=== PATIENT | female | born 1955 | race Caucasian/White ===

== ENCOUNTER 2018-01-06 11:54 | Observation (INO) ==
[2018-01-06] MEDS ORDERED: Aspirin 81 MG TAB.CHEW PO ONE (12:11)
[2018-01-06] MEDS ORDERED: Nitroglycerin 0.4 MG TAB.SUBL SL ONE (12:11)
--- NOTE | 2018-01-06 12:12 | Emergency Department Note ---
Disposition Clinical Impression: Elevated troponin I level Chest pain Qualifiers: Chest pain type: unspecified Qualified Code(s): R07.9 - Chest pain, unspecified Disposition: Admitted As Inpatient Condition: Fair Time of Disposition: 14:13 Chest Pain HPI - General Chief Complaint: ED Chest Pain Stated Complaint: chest pain Time Seen by Provider: 01/06/18 11:58 Source: patient Limitations: no limitations - History of Present Illness HPI Narrative: 62yo female c/o of sternal chest pain that radiates to her left shoulder. Patient states it started gradually 2 hours ago while folding laundry then "the pain hit her hard all the sudden." Patient has chest pain in ED when examined, says chest pain is dull, 7/10, but pain is sharp when she takes a deep breath. Pain exacerbated with breathing and moving; relief when she is not moving. Patient admits to diaphoresis when chest pain worsened. Patient denies taking aspirin or any medication for the chest pain. Patient denies ripping/tearing sensation, was a smoker for 15 years and quit 30 years ago. Patient has hx of HTN and is well controlled with medication, she states she took her BP medication this morning, but her home BP was a little elevated today still. Patient denies personal hx of RI or angina. Patient has risk factors: HTN, famhx of CAD. Pt complaint: chest pain Onset (ago): hour(s) Duration: constant, gradually worsening Severity scale (1-10): 7 Quality: sharp, dull Pain Radiation: other (left shoulder blade) Improves with: remaining still Worsens with: inspiration, movement Associated symptoms: Reports: diaphoresis, dyspnea Treatments prior to arrival chest pain: none - Related Data Home Medications Medication Instructions Recorded Confirmed Lisinopril [Zestril] 5 mg PO DAILY 01/06/18 01/06/18 Omeprazole [PriLOSEC] 20 mg PO DAILY 01/06/18 01/06/18 Allergies Allergy/AdvReac Type Severity Reaction Status Date / Time No Known Allergies Allergy Verified 01/06/18 11:55 Constitutional: Denies: fever, chills, weakness, weight change Eyes: Denies: eye pain, eye discharge, vision change ENT ED: Denies: ear pain, throat pain, dental pain, hearing loss, epistaxis, congestion, dysphagia Cardiovascular: Reports: as per HPI, chest pain Respiratory: Reports: as per HPI, dyspnea (sharp pain with dep insipration) Chest Pain PMH - Past Medical History Medical history: Reports: GERD, hyperlipidemia, hypertension Surgical history: Reports: hysterectomy Psychiatric history: Reports: anxiety, depression PUBLIC HEALTH STAFF NURSE history: Reports: no PUBLIC HEALTH STAFF NURSE history - Social History Smoking Status: Former smoker (quit 30 years ago, smoked for 15 years) Alcohol use: Reports: unknown Drug use: Reports: none Physical Exam - General Limitations: no limitations General appearance: alert, in no apparent distress - Head Head exam: atraumatic, normocephalic, normal inspection - Eye Eye exam: Present: EOMI - ENT ENT exam: normal exam - Neck Neck exam: Present: normal inspection - Chest Chest inspection: Present: normal inspection, symmetric chest wall rise - Respiratory Respiratory exam: Present: normal lung sounds bilaterally - Cardiovascular Cardiovascular exam: Present: regular rate, normal rhythm, normal heart sounds - Abdominal Exam Abdominal exam: Present: soft, Non-Tender. Absent: tenderness, distention, guarding, rebound, rigidity - Extremities Exam Extremities exam: Present: normal inspection, full ROM. Absent: tenderness, pedal edema - Neurological Exam Neurological exam: Present: alert, oriented X3 - Psychiatric Psychiatric exam: Present: normal affect, normal mood - Skin Skin exam: Present: warm, dry, intact, normal color Course Course Narrative: Patient seen and examined. Chest pain that started 2 hours ago. Cardiopulmonary workup initiated. EKG does not show any signs of ST elevation. - Reevaluation(s) Reevaluation #1: Troponin mildly elevated at 0.05. We will admit for chest pain, ACS workup. I discussed with the hospitalist Dr. Baig who has accepted patient for admission. Time: 14:04 Vital Signs Temperature 98.1 F 01/06/18 11:55 Pulse Rate 89 01/06/18 11:55 Respiratory Rate 15 01/06/18 11:55 Blood Pressure 174/85 01/06/18 11:55 O2 Sat by Pulse Oximetry 93 01/06/18 11:55 Temperature 98.1 F 01/06/18 12:00 Pulse Rate 74 01/06/18 13:03 Respiratory Rate 15 01/06/18 12:00 Blood Pressure 127/76 01/06/18 13:03 O2 Sat by Pulse Oximetry 95 01/06/18 13:03 Oxygen Delivery Oxygen Delivery Room Air Chest Pain - Medical Records Medical records reviewed: Yes I reviewed the patient's medical records. - Lab Data Lab results reviewed: Yes I reviewed the patient's lab results. Result diagrams: 01/06/18 12:21 01/06/18 12:21 Lab Results 01/06/18 01/06/18 01/06/18 Range/Units 12:21 12:21 12:21 WBC 6.4 (4.3-11.1) K/mcL RBC 4.75 (3.82-4.97) M/mcL Hgb 14.0 (11.5-15.4) g/dL Hct 42.1 (35.3-44.9) % MCV 88.6 (83.0-100.0) fL MCH 29.5 (28.0-33.3) pg MCHC 33.3 (31.6-35.5) g/dL RDW 12.6 (11.5-14.5) % Plt Count 190 (140-400) K/mcL MPV 10.2 (9.4-12.4) fL Immature Gran % 0.5 (0-4) % Seg Neutrophils % 46.9 % Lymphocytes % 40.4 % Monocytes % 9.7 % Eosinophils % 1.7 % Basophils % 0.8 % Neutrophils # 3.0 (1.6-8.9) K/mcL Lymphocytes # 2.6 (0.6-4.6) K/mcL Monocytes # 0.6 (0.0-1.3) K/mcL Eosinophils # 0.1 (0.0-0.6) K/mcL Basophils # 0.1 (0.0-0.2) K/mcL D-Dimer 442 (0-500) ng/mLFEU Sodium 141 (136-145) mEq/L Potassium 3.3 L (3.5-5.1) mEq/L Chloride 112 H (98-107) mEq/L Carbon Dioxide 24 (23-29) mEq/L BUN 9 (8-23) mg/dL Creatinine 0.49 L (0.60-1.20) mg/dL Est GFR ( Amer) > 60 (> 60) Est GFR (Non-Af Amer) > 60 (> 60) BUN/Creatinine Ratio 18 (6-26) Glucose 88 (70-105) mg/dL Calculated Osmolality 290 (280-300) Calcium 7.7 L (8.6-10.3) mg/dL Troponin I 0.05 H* (< 0.04) ng/mL - Radiology Data Radiology results reviewed: Yes I reviewed the patient's radiology results. Chest X-Ray 01/06/18 12:11 IMPRESSION: No acute findings D/ / Soumya Orellana MD / Soumya Orellana MD Interpreting Provider: Soumya Orellana MD - EKG Data EKG attestation: Yes I reviewed and interpreted this EKG. EKG results narrative: EKG done at 1206 shows normal sinus rhythm with a rate of [address] elevation or depression. Left axis deviation. Heart Score - Score History: Slightly Suspicious EKG: Non Specific repolarisation Disturbance Age: 45-65 Risk Factors: 1-2 risk factors Troponin: Less than normal limit HEART Score Total: 3
--- NOTE | 2018-01-06 12:23 | Emergency Department Note ---
Disposition Clinical Impression: Chest pain, Elevated troponin I level Disposition: Admitted As Inpatient Condition: Fair General Adult HPI - General Chief complaint: ED Chest Pain Stated complaint: chest pain Time Seen by Provider: 01/06/18 11:58 Source: patient Limitations: no limitations Nursing Notes Reviewed: Yes Vital Signs Reviewed: Yes - History of Present Illness Pain Scale: 7 - Related Data Home Medications Medication Instructions Recorded Confirmed Lisinopril [Zestril] 5 mg PO DAILY 01/06/18 01/06/18 Omeprazole [PriLOSEC] 20 mg PO DAILY 01/06/18 01/06/18 Allergies Allergy/AdvReac Type Severity Reaction Status Date / Time No Known Allergies Allergy Verified 01/06/18 11:55 Past Medical History - Past Medical History Medical history: Reports: GERD, hyperlipidemia, hypertension Surgical history: Reports: hysterectomy Psychiatric history: Reports: anxiety, depression MOVIE PROJECTIONIST history: Reports: no MOVIE PROJECTIONIST history - Social History Smoking Status: Unknown if ever smoked Smokeless Tobacco Status: No Alcohol use: Reports: unknown Drug use: Reports: none Physical Exam - General Limitations: no limitations General appearance: alert, in no apparent distress Course Vital Signs Temperature 98.1 F 01/06/18 11:55 Pulse Rate 89 01/06/18 11:55 Respiratory Rate 15 01/06/18 11:55 Blood Pressure 174/85 01/06/18 11:55 O2 Sat by Pulse Oximetry 93 01/06/18 11:55 Temperature 98.4 F 01/06/18 14:54 Pulse Rate 65 01/06/18 14:54 Respiratory Rate 17 01/06/18 14:54 Blood Pressure 140/81 01/06/18 14:54 O2 Sat by Pulse Oximetry 96 01/06/18 14:54 Oxygen Delivery Oxygen Delivery Room Air Medical Decision Making - Lab Data Result diagrams: 01/06/18 12:21 01/06/18 12:21 Lab Results 01/06/18 01/06/18 01/06/18 Range/Units 12:21 12:21 12:21 WBC 6.4 (4.3-11.1) K/mcL RBC 4.75 (3.82-4.97) M/mcL Hgb 14.0 (11.5-15.4) g/dL Hct 42.1 (35.3-44.9) % MCV 88.6 (83.0-100.0) fL MCH 29.5 (28.0-33.3) pg MCHC 33.3 (31.6-35.5) g/dL RDW 12.6 (11.5-14.5) % Plt Count 190 (140-400) K/mcL MPV 10.2 (9.4-12.4) fL Immature Gran % 0.5 (0-4) % Seg Neutrophils % 46.9 % Lymphocytes % 40.4 % Monocytes % 9.7 % Eosinophils % 1.7 % Basophils % 0.8 % Neutrophils # 3.0 (1.6-8.9) K/mcL Lymphocytes # 2.6 (0.6-4.6) K/mcL Monocytes # 0.6 (0.0-1.3) K/mcL Eosinophils # 0.1 (0.0-0.6) K/mcL Basophils # 0.1 (0.0-0.2) K/mcL D-Dimer 442 (0-500) ng/mLFEU Sodium 141 (136-145) mEq/L Potassium 3.3 L (3.5-5.1) mEq/L Chloride 112 H (98-107) mEq/L Carbon Dioxide 24 (23-29) mEq/L BUN 9 (8-23) mg/dL Creatinine 0.49 L (0.60-1.20) mg/dL Est GFR ( Amer) > 60 (> 60) Est GFR (Non-Af Amer) > 60 (> 60) BUN/Creatinine Ratio 18 (6-26) Glucose 88 (70-105) mg/dL Calculated Osmolality 290 (280-300) Calcium 7.7 L (8.6-10.3) mg/dL Troponin I 0.05 H* (< 0.04) ng/mL Attestation Statement - Attestation Attestation: This documentation is done with the assistance of Dragon dictation. Despite efforts made to ensure accuracy, there may be inaccuracies in farmer tree fruit and nut crops or spelling and typographical errors. I examined this patient and my medical decision-making was reviewed with the Resident Physician. I agree with the documented findings, disposition and treatment plan as described except to the extent set forth below. Patient seen and evaluated on arrival with Dr. Hutson and myself, I agree with her evaluation and management plan, I supervised the care of the patient's stay. Patient presents today with chest discomfort. States the pains going into the left back care along the shoulder blade. She states that this happened while she was just doing some laundry at home. She denies abdominal pain no sweats no diaphoresis no previous cardiac history. Regular cardiac workup on her and then reassess. She is in agreement with plan.
[2018-01-06 12:33] LABS: Basophils # 0.1 K/mcL (0.0-0.2); Basophils % 0.8 %; Eosinophils # 0.1 K/mcL (0.0-0.6); Eosinophils % 1.7 %; Hematocrit 42.1 % (35.3-44.9); Immature Granulocytes % 0.5 % (0-4); Lymphocytes # 2.6 K/mcL (0.6-4.6); Lymphocytes % 40.4 %; Mean Corpuscular HGB Conc 33.3 g/dL (31.6-35.5); Mean Corpuscular Hemoglobin 29.5 pg (28.0-33.3); Mean Corpuscular Volume 88.6 fL (83.0-100.0); Mean Platelet Volume 10.2 fL (9.4-12.4); Monocytes # 0.6 K/mcL (0.0-1.3); Monocytes % 9.7 %; Platelet Count 190 K/mcL (140-400); Red Blood Count 4.75 M/mcL (3.82-4.97); Red Cell Distribution Width 12.6 % (11.5-14.5); Segmented Neutrophils % 46.9 %
[2018-01-06 12:54] LABS: BUN/Creatinine Ratio 18 (6-26); Blood Urea Nitrogen 9 mg/dL (8-23); Calcium 7.7 mg/dL (8.6-10.3); Carbon Dioxide 24 mEq/L (23-29); Chloride 112 mEq/L (98-107); Glucose 88 mg/dL (70-105); Osmolality,Calculated 290 (280-300); Potassium 3.3 mEq/L (3.5-5.1); Sodium 141 mEq/L (136-145); eGFR For Non-African Americans > 60 (> 60)
[2018-01-06 12:57] LABS: Troponin I 0.05 ng/mL (< 0.04)
--- NOTE | 2018-01-06 14:46 | Internal Med History&Physical ---
<Wayne Simmons P - Last Filed: 01/06/18 14:38> Date of Encounter: 01/06/18 Time of Encounter: 14:10 Internal Medicine - H&P: HPI Chief complaint: Chest Pain Admitted From: Home Plans for Post Hospital Care: Home History of present illness: Ms. Yoo is a 62 year old female presents from home with her for complaints of left sided chest pain radiating to left shoulder and left back. Patient states the pain started suddenly today while folding laundry around two hours prior to presentation to ER. Described the pain as 10/10 sharp and dull upon presentation but now states pain has decreased to 3/10 after aspirin and nitro in ER and states she is much more comfortable and no longer in distress at this time. Patient also stated she had nausea and was diaphoretic at the onset of the chest pain but denies shortness of breath. States the pain is worsened with deep breathing and relieved with rest. Denies any similar episodes in the past, but does state she felt "unusual" yesterday with some nausea and increased fatigue. Also states she has had increased stress lately worrying about her family. Patient does admit to history of hypertension that is well controlled with medication daily, and a 15 year tobacco smoking history. Past Med Surg Social Fam HX - Past Medical History Medical history: GERD, hyperlipidemia, hypertension Psychiatric history: anxiety, depression - Past Surgical History Surgical History: hysterectomy - Social History Smoking Status: Former smoker (quit 30 years ago, smoked for 15 years) Smokeless Tobacco Status: No Alcohol use: unknown Drug use: none Internal Medicine - H&P: Meds Lisinopril [Zestril] 5 mg PO DAILY 01/06/18 [History] Omeprazole [PriLOSEC] 20 mg PO DAILY 01/06/18 [History] 3 Allergy/AdvReac Type Severity Reaction Status Date / Time No Known Allergies Allergy Verified 01/06/18 11:55 All Systems PM: A 10-system review of systems was performed and is negative for pertinent findings except as documented above in the HPI. - Constitutional Vitals: Temp Pulse Resp BP Pulse Ox 98.1 F 78 14 159/86 98 01/06/18 12:00 01/06/18 14:20 01/06/18 14:23 01/06/18 14:23 01/06/18 14:20 Exam: General: Alert and oriented, in no current distress. Skin:Normal color, no rash, no lesions. HEENT:EOM, pupils equal, round and reactive. Cardiovascular:Normal S1 & S2, no rubs, murmurs or gallops. No JVD. Pulse regular. Lungs:Normal breath sounds, some wheezes noted throughout. Abdomen:Soft, non-tender, no rigidity. Extremities:No deformity, no edema or tenderness, no joint swelling or clubbing. Neurological:Normal cognition and motor skills. Pulses:Carotid and radial pulses normal +2. Rest of the physical exam is non contributory Internal Med - H&P Results - Labs CBC & Chem 7: 01/06/18 12:21 01/06/18 12:21 Labs: Short CBC 01/06/18 Range/Units 12:21 WBC 6.4 (4.3-11.1) K/mcL Hgb 14.0 (11.5-15.4) g/dL Hct 42.1 (35.3-44.9) % Plt Count 190 (140-400) K/mcL Neutrophils # 3.0 (1.6-8.9) K/mcL BMP 01/06/18 12:21 Sodium 141 Potassium 3.3 L Chloride 112 H Carbon Dioxide 24 BUN 9 Creatinine 0.49 L Glucose 88 Calcium 7.7 L Cardiac Enzymes 01/06/18 Range/Units 12:21 Troponin I 0.05 H* (< 0.04) ng/mL - Impressions ITS Impressions Chest X-Ray 01/06/18 12:11 IMPRESSION: No acute findings D/ / Soumya Orellana MD / Soumya Orellana MD Interpreting Provider: Soumya Orellana MD - Assessment and plan (1) Chest pain Current Visit: Yes Status: Acute Assessment and plan: Admit to observation status. Continuous cardiac monitoring. Troponins q6 hours. Qualifiers: Chest pain type: unspecified Qualified Code(s): R07.9 - Chest pain, unspecified (2) Elevated troponin I level Current Visit: Yes Status: Acute Assessment and plan: Troponin ordered today 1800 and 01/07/2018 0000. (3) Low blood potassium Current Visit: Yes Status: Acute Assessment and plan: Potassium replaced in ER, will redraw with morning labs. - Time Spent With Patient Total time spent is greater than 50% in coordination of care (as documented) at patient's floor/unit and/or counseling patient: <Mike Baig - Last Filed: 01/06/18 19:44> Date of Encounter: 01/06/18 Internal Medicine - H&P: HPI History of present illness: Ms. Yoo is a 62 year old female Past Med Surg Social Fam HX - Family History Mother Name: Rae Ferris Age: 72 Living Status: Age at : 72 Cause of : Cancer Hx Family Cardiac Disorders: Yes Hx Family Respiratory Disorders: Yes All Systems PM: A 10-system review of systems was performed and is negative for pertinent findings except as documented above in the HPI. - Constitutional Vitals: Temp Pulse Resp BP Pulse Ox 98.2 F 74 16 125/76 97 01/06/18 18:43 01/06/18 18:43 01/06/18 18:43 01/06/18 18:43 01/06/18 18:43 Internal Med - H&P Results - Labs CBC & Chem 7: 01/06/18 12:21 01/06/18 12:21 - Attending Attestation I have personally performed a face to face evaluation on this patient. I have reviewed and agree with the care plan. History and Exam by me shows: Ms Yoo presented with acute L side chest pain. Worse with breathing. L shoulder hurts as well. Some dyspnea and nausea. Exam alert Mod distress due to pain Mucus membranes dry Heart reg with no murmur Lungs clear Abd soft and nontender No edema I/P 1. Chest pain - initial trop slightly elevated. D dimer negative but clinically concerning. CTA ordered. Cycle troponins. Further diagnoses and plan as above. - Assessment and plan (1) Chest pain Current Visit: Yes Status: Acute Qualifiers: Chest pain type: unspecified Qualified Code(s): R07.9 - Chest pain, unspecified (2) Elevated troponin I level Current Visit: Yes Status: Acute (3) Low blood potassium Current Visit: Yes Status: Acute - Time Spent With Patient Total time spent is greater than 50% in coordination of care (as documented) at patient's floor/unit and/or counseling patient:
[2018-01-06] MEDS ORDERED: Isovue-370 500 ML INFUS..BTL IV ONE ×2 (17:06→20:11)
[2018-01-07 01:24] LABS: INR 0.9; Prothrombin Time 10.6 Seconds (9.4-12.1)
[2018-01-07 01:25] LABS: Alanine Aminotransferase 28 Units/L (7-52); Albumin/Globulin Ratio 1.7 (1.1-2.2); Alkaline Phosphatase 63 Units/L (34-104); Aspartate Amino Transferase 25 Units/L (13-39); BUN/Creatinine Ratio 13 (6-26); Bilirubin,Total 0.3 mg/dL (0.3-1.0); Blood Urea Nitrogen 10 mg/dL (8-23); Calcium 9.8 mg/dL (8.6-10.3); Carbon Dioxide 28 mEq/L (23-29); Chloride 105 mEq/L (98-107); Globulin 2.4 g/dL (2.4-3.5); Glucose 116 mg/dL (70-105); Osmolality,Calculated 288 (280-300); Potassium 4.3 mEq/L (3.5-5.1); Sodium 139 mEq/L (136-145); Total Protein 6.4 g/dL (6.4-8.9); eGFR For Non-African Americans > 60 (> 60)
[2018-01-07 02:40] LABS: Basophils % 0.6 %; Eosinophils # 0.1 K/mcL (0.0-0.6); Eosinophils % 2.3 %; Hematocrit 44.8 % (35.3-44.9); Hemoglobin 14.8 g/dL (11.5-15.4); Immature Granulocytes % 0.3 % (0-4); Lymphocytes # 2.5 K/mcL (0.6-4.6); Lymphocytes % 41.2 %; Mean Corpuscular Volume 90.7 fL (83.0-100.0); Mean Platelet Volume 10.9 fL (9.4-12.4); Monocytes # 0.6 K/mcL (0.0-1.3); Monocytes % 8.9 %; Neutrophils # 2.9 K/mcL (1.6-8.9); Platelet Count 182 K/mcL (140-400); Red Blood Count 4.94 M/mcL (3.82-4.97); Red Cell Distribution Width 12.5 % (11.5-14.5); Segmented Neutrophils % 46.7 %
[2018-01-07 11:14] VITALS: BP 113/72
[2018-01-07] MEDS ORDERED: Ketorolac 30 MG/ML VIAL IVP ONE (12:20)
--- NOTE | 2018-01-07 13:47 | Discharge Summary ---
- NOTES TO OUTPATIENT PROVIDER Notes to Outpatient Provider: Pt presented to ED with sudden L side sharp chest pain with pleuritic component. Initial troponin 0.05 and then negative. CTA neg for PE. Toradol helped pain. Will need further outpatient work up. Orders not resulted at time of discharge: Pending orders 01/07/18 12:36 EV echocardiogram Routine 01/07/18 13:44 EKG [ECG 12 lead ECG] [ECG] Stat Date of Encounter: 01/07/18 Time of Encounter: 13:45 - Discharge Diagnosis (1) Costochondritis Priority: Primary Status: Acute (2) Chest pain Priority: Secondary Status: Suspected Qualifiers: Chest pain type: intercostal pain Qualified Code(s): R07.82 - Intercostal pain (3) Elevated troponin I level Priority: Secondary Status: Acute (4) Low blood potassium Priority: Secondary Status: Resolved (5) Hypertension Priority: Secondary Status: Chronic Qualifiers: Hypertension type: essential hypertension Qualified Code(s): I10 - Essential (primary) hypertension (6) Pulmonary nodule, left Priority: Secondary Status: Chronic Assessment and Plan: Recheck in 6 months Hospital course: Ms. Yoo is a 62 year old female with hx of HTN presented to ED with sharp L sided chest pain. Came on suddenly while she was folding towels and had associated dyspnea. She was evaluated and initial troponin was 0.05. She was placed in observation. Ms Yoo was placed in observation on [facility]. Due to her symptoms she had CTA even though d dimer was low. She had a pulmonary nodule that needs followed. Further troponins were negative. This morning she still had some discomfort that was worse with deep breath. She had pain on pressing on ribs. She was given Toradol with improvement. Repeat EKG was negative. She is afebrile and ready for discharge home. She is going to follow up in residency clinic. - Time Spent with Patient Total time spent providing and/or coordinating discharge services: 39min - Discharge Medications Home Medications: Lisinopril [Zestril] 5 mg PO DAILY 01/06/18 [History] Omeprazole [PriLOSEC] 20 mg PO DAILY 01/06/18 [History] Allergies/Adverse Reactions: 3 Allergy/AdvReac Type Severity Reaction Status Date / Time No Known Allergies Allergy Verified 01/06/18 11:55 Date of admission: 01/06/18 13:52 Primary care physician: Louie Baldwin MD Discharging clinician: Mike Baig Anticipated date of discharge: 01/07/18 - Constitutional Vitals: Temp Pulse Resp BP Pulse Ox 98.5 F 73 16 113/72 94 01/07/18 11:13 01/07/18 11:13 01/07/18 11:13 01/07/18 11:13 01/07/18 11:13 General appearance: Present: A&O X 3, pleasant, answers questions appropriately - Head Head exam: Present: normocephalic - Eye Eye exam: Present: conjuntiva pink - ENT ENT exam: Present: mucous membranes moist - Respiratory Respiratory exam: Present: CTAB. Absent: rales, rhonchi, wheezes - Cardiovascular Cardiovascular exam: Present: RRR. Absent: systolic murmur, tachycardia - GI/Abdominal GI/Abdominal exam: Present: soft. Absent: tenderness - Extremities Exam Extremities exam: Present: warm. Absent: tenderness - Neurological Exam Neurological exam: Present: alert, oriented X3 - Skin Skin exam: Present: dry, warm - Patient Status Disposition: Home, Self-Care Condition: Fair Functional capacity at discharge: independent ambulation Overall status at discharge: patient is progressing back to baseline - Discharge Instructions Instructions: Costochondritis (DC), Costochondritis (GEN), Costochondritis, Obstetric Anaesthetist (GEN) Follow Up With: Padmini Marion [Resident] - (Please follow up in 1-2 weeks) - Diet and Activity Activity: resume usual activities as tolerated Diet: advance to your usual diet
--- NOTE | 2018-01-08 07:57 | Electrocardiograph Report ---
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
--- NOTE | 2018-01-08 16:30 | Electrocardiograph Report ---
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
== END 2018-01-07 15:10 | disposition home or self-care (01) ==
LOC: EMEROO 11:54 → 3BNU 11:54 → SUATTDRO 13:52 → 3BNU 14:39
PROVIDERS: ADMIT Family Medicine; ATTEND Internal Medicine

== ENCOUNTER 2019-08-09 14:10 | Inpatient (IN) ==
[2019-08-09] MEDS ORDERED: Aspirin 81 MG TAB.CHEW PO ONE (14:41)
[2019-08-09] MEDS ORDERED: GI Cocktail 40 ML EACH PO ONE (14:42)
[2019-08-09 15:20] LABS: Bilirubin,Urine Negative (Negative); Blood,Urine Negative (Negative); Clarity,Urine Clear (Clear); Color,Urine Yellow (Yellow); Glucose,Urine (UA) Normal (Normal); Ketones,Urine Negative (Negative); Leukocyte Esterase,Urine Negative (Negative); Nitrite,Urine Negative (Negative); PH,Urine 7.5 pH Units (5.0-8.0); Protein,Urine Negative (Neg-Trace); Specific Gravity,Urine 1.009 (1.010-1.025); Urobilinogen,Urine Normal (Normal)
[2019-08-09 15:30] LABS: Basophils % 0.5 %; Eosinophils # 0.1 K/mcL (0.0-0.6); Hemoglobin 15.4 g/dL (11.5-15.4); Immature Granulocytes % 0.3 % (0-4); Lymphocytes # 2.2 K/mcL (0.6-4.6); Lymphocytes % 28.1 %; Mean Corpuscular HGB Conc 33.5 g/dL (31.6-35.5); Mean Corpuscular Hemoglobin 30.7 pg (28.0-33.3); Mean Corpuscular Volume 91.8 fL (83.0-100.0); Monocytes # 0.5 K/mcL (0.0-1.3); Monocytes % 5.9 %; Neutrophils # 4.9 K/mcL (1.6-8.9); Platelet Count 196 K/mcL (140-400); Red Blood Count 5.01 M/mcL (3.82-4.97); Red Cell Distribution Width 12.3 % (11.5-14.5); Segmented Neutrophils % 64.2 %; White Blood Count 7.7 K/mcL (4.3-11.1)
[2019-08-09 15:40] LABS: Alanine Aminotransferase 26 Units/L (7-52); Albumin 4.7 g/dL (3.5-5.7); Albumin/Globulin Ratio 1.7 (1.1-2.2); Alkaline Phosphatase 60 Units/L (34-104); Aspartate Amino Transferase 24 Units/L (13-39); BUN/Creatinine Ratio 19 (6-26); Bilirubin,Direct 0.1 mg/dL (0.0-0.2); Bilirubin,Indirect 0.3 mg/dL (0.0-1.0); Bilirubin,Total 0.4 mg/dL (0.3-1.0); Blood Urea Nitrogen 11 mg/dL (8-23); Calcium 9.9 mg/dL (8.6-10.3); Carbon Dioxide 26 mEq/L (23-29); Chloride 104 mEq/L (98-107); Globulin 2.8 g/dL (2.4-3.5); Glucose 103 mg/dL (70-105); Lipase 17 Units/L (11-82); Osmolality,Calculated 286 (280-300); Potassium 3.8 mEq/L (3.5-5.1); Sodium 138 mEq/L (136-145); Total Protein 7.5 g/dL (6.4-8.9); Troponin I < 0.03 ng/mL (< 0.04); eGFR For African Americans > 60 (> 60); eGFR For Non-African Americans > 60 (> 60)
[2019-08-09] MEDS ORDERED: Ondansetron ODT 4 MG TAB.RAPDIS SL PRN (18:03)
[2019-08-09] MEDS: lisinopriL 5 MG TABLET PO SCH (21:03)
[2019-08-10 01:00] LABS: Basophils # 0.1 K/mcL (0.0-0.2); Basophils % 0.7 %; Eosinophils # 0.2 K/mcL (0.0-0.6); Immature Granulocytes % 0.4 % (0-4); Lymphocytes # 3.5 K/mcL (0.6-4.6); Mean Corpuscular HGB Conc 33.7 g/dL (31.6-35.5); Mean Corpuscular Hemoglobin 31.2 pg (28.0-33.3); Mean Corpuscular Volume 92.6 fL (83.0-100.0); Mean Platelet Volume 10.2 fL (9.4-12.4); Monocytes # 0.6 K/mcL (0.0-1.3); Monocytes % 7.7 %; Neutrophils # 3.3 K/mcL (1.6-8.9); Platelet Count 192 K/mcL (140-400); Red Blood Count 4.43 M/mcL (3.82-4.97); Red Cell Distribution Width 12.5 % (11.5-14.5); Segmented Neutrophils % 43.2 %; White Blood Count 7.7 K/mcL (4.3-11.1)
[2019-08-10 01:02] LABS: Hemoglobin 13.8 g/dL (11.5-15.4)
[2019-08-10 01:04] LABS: BUN/Creatinine Ratio 19 (6-26); Blood Urea Nitrogen 12 mg/dL (8-23); Calcium 8.9 mg/dL (8.6-10.3); Carbon Dioxide 28 mEq/L (23-29); Chloride 107 mEq/L (98-107); Chol/HDL Ratio 5.8 (0-4.9); Cholesterol 232 mg/dL (< 200); Glucose 101 mg/dL (70-105); HDL Cholesterol 40 mg/dL (40-59); LDL Cholesterol,Calculated 152 mg/dL (0-99); Osmolality,Calculated 286 (280-300); Potassium 3.7 mEq/L (3.5-5.1); Sodium 138 mEq/L (136-145); Triglycerides 202 mg/dL (< 150); eGFR For African Americans > 60 (> 60); eGFR For Non-African Americans > 60 (> 60)
[2019-08-10] MEDS ORDERED: Regadenoson 0.4 MG/5 ML SYRINGE IVP ONE ×2 (06:20→10:37)
[2019-08-10] MEDS ORDERED: Aspirin 81 MG TAB.CHEW ONE (10:37)
[2019-08-10] MEDS ORDERED: lisinopriL 5 MG TABLET ONE (10:37)
[2019-08-10] MEDS: Aspirin 81 MG TAB.CHEW PO SCH (16:30)
[2019-08-10] MEDS: lisinopriL 5 MG TABLET PO SCH (16:31)
[2019-08-11 06:30] LABS: Estimated Average Glucose 137 mg/dl
[2019-08-11] MEDS: lisinopriL 5 MG TABLET PO SCH (09:05)
[2019-08-11] MEDS: Metoprolol XL (24 HR) Succ 25 MG TAB.ER.24H PO SCH (09:05)
[2019-08-11] MEDS: Aspirin 81 MG TAB.CHEW PO SCH (09:05)
[2019-08-11] MEDS: polyethylene glycoL 3350 17 GM POWD.PACK PO PRN (13:16)
[2019-08-12] MEDS ORDERED: Heparin 1,000 UNITS/500 mL 500 ML ONE (07:10)
[2019-08-12] MEDS ORDERED: ISOVUE-370 200 ML INFUS..BTL ONE ×2 (07:10→09:00)
[2019-08-12] MEDS ORDERED: *HR* Heparin 10,000 UNIT/10 ML VIAL ONE (07:10)
[2019-08-12] MEDS ORDERED: 0.9 % Sodium Chloride 2,000 ML ONE (07:10)
[2019-08-12] MEDS ORDERED: Nitroglycerin 1,000 MCG/10 ML VIAL IV ONE (07:10)
[2019-08-12] MEDS: lisinopriL 5 MG TABLET PO SCH (07:31)
[2019-08-12] MEDS: Aspirin 81 MG TAB.CHEW PO SCH (07:31)
[2019-08-12] MEDS: Metoprolol XL (24 HR) Succ 25 MG TAB.ER.24H PO SCH (07:31)
[2019-08-12] MEDS ORDERED: *HR* FentaNYL (PF) 100 MCG/2 ML VIAL ONE (07:55)
[2019-08-12] MEDS ORDERED: *HR* Midazolam HCl 2 MG/2 ML VIAL ONE (07:55)
[2019-08-12] MEDS ORDERED: Tirofiban 12.5 MG/250ML 12.5 MG/250 ML BAG ONE (08:43)
[2019-08-12] MEDS ORDERED: *HR* Ticagrelor 90 MG TABLET ONE (08:45)
[2019-08-12] MEDS ORDERED: Tirofiban 12.5 MG/250ML 12.5 MG/250 ML BAG IVC SCH (09:15)
[2019-08-12] MEDS: Acetaminophen 325 MG TABLET PO PRN ×2 (13:15→20:18)
[2019-08-12] MEDS: polyethylene glycoL 3350 17 GM POWD.PACK PO PRN (13:18)
[2019-08-12] MEDS: *HR* Ticagrelor 90 MG TABLET PO SCH (20:11)
[2019-08-13 07:49] VITALS: BP 147/83
[2019-08-13] MEDS: Metoprolol XL (24 HR) Succ 25 MG TAB.ER.24H PO SCH (08:28)
[2019-08-13] MEDS: Aspirin 81 MG TAB.CHEW PO SCH (08:28)
[2019-08-13] MEDS: lisinopriL 5 MG TABLET PO SCH (08:28)
[2019-08-13] MEDS: *HR* Ticagrelor 90 MG TABLET PO SCH (08:29)
== END 2019-08-13 12:12 | disposition home or self-care (01) | DRG 247 ==
LOC: 3BNU 14:10 → EMEROOARM 14:10 → 3BNU 20:00
PROVIDERS: ADMIT Family Medicine; ATTEND Internal Medicine